=== PATIENT | female | born 1995 | race Caucasian/White ===

== ENCOUNTER 2018-11-22 02:38 | Emergency (ER) | payer BC ==
[2018-11-22 04:40] LABS: Urine Appearance Clear; Urine Bilirubin Negative (Negative); Urine Blood Negative (Negative); Urine Color Yellow; Urine Glucose Negative (Negative); Urine Ketones 1+ (Negative); Urine Nitrite Negative (Negative); Urine Protein Negative (Negative); Urine Specific Gravity 1.016 (1.010-1.030); Urine Urobilinogen Negative (Negative)
--- NOTE | 2018-11-22 05:17 | ED ---
Abdominal Pain/Female - HPI Summary HPI Summary: This pt is a 22 Y/O F presenting to [facility] with a CC of abdominal pain around 0130 that was located around her lower quadrants. She also stated that the pain was a 6/10 in severity. She states that she had chills during the episodes. She states that she has been spotting over the past 5 days. She states that she had a normal period a week and a half ago. She states that the last time her IUD was checked was around a year ago. She states that she has had 1 partner and does not use condoms. She denies any pain or discharge during sexual intercourse. She denies dysuria during urination. She denies any alcohol consumption tonight. She also denies any CP, fevers, diaphoresis, headaches, and nasal congestion. She states that she had popcorn for dinner at 1800 and did not eat much throughout the day. She does not have a PMHx of celiac but states that she does have a sensitivity to gluten. - History of Current Complaint Chief Complaint: Bakari Stated Complaint: ABD PAIN PER PT Time Seen by Provider: 11/22/18 04:41 Hx Obtained From: Patient ?: No - IUD Onset/Duration: Sudden Onset, Lasting Hours, Resolved Timing: Constant Severity Initially: Moderate Severity Currently: Moderate Pain Intensity: 6 Pain Scale Used: 0-10 Numeric Location: Diffuse Radiates: No Aggravating Factor(s): Nothing Alleviating Factor(s): Nothing Associated Signs and Symptoms: Positive: Vaginal Bleeding - spotting for a week and a half, Vaginal Discharge, Nausea, Vomiting. Negative: Diaphoresis, Fever, Cough, Chest Pain, Urinary Symptoms Allergies/Adverse Reactions: Allergies Allergy/AdvReac Type Severity Reaction Status Date / Time No Known Allergies Allergy Verified 11/22/18 02:39 Home Medications: Home Medications NK [No Home Medications Reported] 11/22/18 [History Confirmed 11/22/18] PMH/Surg Hx/FS Hx/Imm Hx Previously Healthy: Yes Infectious Disease History: No Infectious Disease History: Denies: Traveled Outside the [place] in Last 30 Days - Social History Occupation: Student Lives: Dormitory/Roommates Alcohol Use: Weekly Hx Substance Use: No Substance Use Type: Reports: None Hx Tobacco Use: No Smoking Status (MU): Never Smoked Tobacco Review of Systems Positive: Chills Positive: Abdominal Pain - RLQ, Vomiting, Nausea Positive: discharge - vaginal spotting x5 days . Negative: dysuria All Other Systems Reviewed And Are Negative: Yes Physical Exam - Summary Physical Exam Summary: Constitutional: Well-developed, Well-nourished, Alert. (-) Distressed Skin: Warm, Dry HENT: Normocephalic; Atraumatic Eyes: Conjunctiva normal Neck: Musculoskeletal ROM normal neck. (-) JVD, (-) Stridor, (-) Nuchal rigidity Cardio: Rhythm regular, rate normal, Heart sounds normal; Intact distal pulses; Radial pulses are 2+ and symmetric. (-) Murmur Pulmonary/Chest wall: Effort normal. (-) Respiratory distress, (-) Wheezes, (-) Rales Abd: Soft, (-) tenderness, (-) Distension, (-) Guarding, (-) Rebound Musculoskeletal: (-) Edema Lymph: (-) Cervical adenopathy Neuro: Alert, Oriented x3 Psych: Mood and affect Normal Triage Information Reviewed: Yes Vital Signs On Initial Exam: Initial Vitals Temp Pulse Resp BP Pulse Ox 97.6 F 135 20 153/97 98 11/22/18 02:40 11/22/18 02:40 11/22/18 02:40 11/22/18 02:40 11/22/18 02:40 Vital Signs Reviewed: Yes Diagnostics - Vital Signs Vital Signs Temp Pulse Resp BP Pulse Ox 11/22/18 02:40 97.6 F 135 20 153/97 98 - Laboratory Lab Results: Lab Results 11/22/18 Range/Units 04:24 Urine Color Yellow Urine Appearance Clear Urine pH 6.0 (5-9) Ur Specific [place] 1.016 (1.010-1.030) Urine Protein Negative (Negative) Urine Ketones 1+ A (Negative) Urine Blood Negative (Negative) Urine Nitrate Negative (Negative) Urine Bilirubin Negative (Negative) Urine Urobilinogen Negative (Negative) Ur Leukocyte Esterase Negative (Negative) Urine Glucose Negative (Negative) Result Diagrams: 11/22/18 05:44 11/22/18 05:44 Lab Statement: Any lab studies that have been ordered have been reviewed, and results considered in the medical decision making process. Abdominal Pain Fem Course/Dx - Course Course Of Treatment: This pt is a 22 Y/O F presenting to [facility] with a CC of abdominal pain around 0130 that was located around her lower quadrants with associated nausea and vomiting. She also stated that the pain was a 6/10 in severity. She states that she had chills during the episodes. She states that she has been spotting over the past 5 days. She has no abnormal PE. All other abnormal lab results are not pertinent to current cc. This pt will be discharged home with a Dx of N/V. - Diagnoses Provider Diagnoses: Nausea & vomiting Discharge ED - Sign-Out/Discharge Documenting (check all that apply): Patient Departure - discharge Patient Received Moderate/Deep Sedation with Procedure: No - Discharge Plan Condition: Stable Disposition: HOME Patient Education Materials: Acute Nausea and Vomiting (ED) Referrals: [facility] [Outside] - Billing Disposition and Condition Condition: STABLE Disposition: Home - Attestation Statements Document Initiated by Cayetano: Yes Documenting Scribe: Faisal Rodriges Provider For Whom Cayetano is Documenting (Include Credential): Donnie Gil MD Scribe Attestation: Faisal Zamora, scribed for Donnie Gil MD on 11/22/18 at 0758. Scribe Documentation Reviewed: Yes Provider Attestation: The documentation as recorded by the Faisal taveras accurately reflects the service I personally performed and the decisions made by , Donnie Gil MD Status of Scribe Document: Viewed
[2018-11-22 05:56] LABS: ABS Eosinophils 0.1 10^3/ul (0-0.6); ABS Lymphocytes 1.7 10^3/ul (1.0-4.8); ABS Monocytes 0.4 10^3/ul (0-0.8); ABS Neutrophils 7.2 10^3/ul (1.5-7.7); Eosinophil % 0.7 %; Hematocrit 45 % (35-47); Hemoglobin 15.3 g/dL (12.0-16.0); Lymphocyte % 18.5 %; Mean Corpuscular HGB Conc 34 g/dL (31-36); Mean Corpuscular Hemoglobin 30 pg (27-31); Mean Corpuscular Volume 87 fL (80-97); Mean Platelet Volume 8.1 fL (7.4-10.4); Platelet Count 252 10^3/uL (150-450); Red Blood Count 5.14 10^6 /uL (3.70-4.87); Red Cell Distribution Width 13 % (10-15); White Blood Count 9.4 10^3/uL (3.5-10.8)
[2018-11-22 06:17] LABS: Albumin 4.9 g/dL (3.2-5.2); BUN/Creatinine Ratio 19.3 (8-20); Calcium 10.4 mg/dL (8.6-10.3); EGFR African American 98.1 (>60); EGFR Non-African American 81.1 (>60); Globulin 2.5 g/dL (2-4); Indirect Bilirubin 0.8 mg/dL (0.3-1.0); Potassium 4.8 mmol/L (3.5-5.0); Total Bilirubin 0.9 mg/dL (0.2-1.0); Total Protein 7.4 g/dL (6.4-8.9)
[2018-11-22 06:19] LABS: HCG Pregnancy 0.7 mIU/mL
[2018-11-22 06:30] VITALS: BP 136/80
== END 2018-11-22 07:12 | disposition home or self-care (01) ==
LOC: ED 02:38
DX: R11.2 Nausea with vomiting, unspecified (principal)
CPT/HCPCS: 36415; 80048; 80076; 81003; 83690; 84702; 85025; 99282